=== PATIENT | male | born 1960 ===

== ENCOUNTER 2016-11-05 17:16 | Emergency (ER) | payer OTHER, BC ==
[2016-11-05 18:47] LABS: CHLORIDE,CL 107 mmol/L (98-110); SODIUM,NA 142 mmol/L (136-146)
--- NOTE | 2016-11-05 19:45 | EDM.PDOC ---
ED HPI GI/ABDOMINAL - General Chief Complaint: Abdominal Pain Stated Complaint: ABDOMINAL PAIN/RIBCAGE Time Seen by Provider: 11/05/16 17:40 Source of Information: Reports: Patient History Limitations: Reports: No limitations - History of Present Illness INITIAL COMMENTS - FREE TEXT/NARRATIVE: History of present illness: [55-year-old male presenting with acute abdominal pain. Patient indicates it is worse after he eats. Patient says in retrospect he actually feels has been struggling with the prior to 6 weeks but it has come and gone and he does notice that it is worse after eating, and he also had had some other issues such as back pain and a viral infection that he was able to rationalize was going on but now he is otherwise healthy without complaints save for this stabbing right upper quadrant pain.] Review of systems: As per history of present illness and below otherwise all systems reviewed and negative. Past medical history: As per history of present illness and as reviewed below otherwise noncontributory. Surgical history: As per history of present illness and as reviewed below otherwise noncontributory. Social history: No reported history of drug or alcohol abuse. Family history: As per history of present illness and as reviewed below otherwise noncontributory. Physical exam: HEENT: Atraumatic, normocephalic, pupils reactive, negative for conjunctival pallor or scleral icterus, mucous membranes moist, throat clear, neck supple, nontender, trachea midline. Lungs: Clear to auscultation, breath sounds equal bilaterally, chest nontender. Heart: S1S2, regular, negative for clicks, rubs, or JVD. Abdomen: Slightly firm, obese, distended abdomen that is tender in right upper quadrant with some radiation to right lower quadrant. Negative for masses or hepatosplenomegaly. Negative for costovertebral tenderness. Pelvis: Stable nontender. Genitourinary: Deferred. Rectal: Deferred. Extremities: Atraumatic, negative for cords or calf pain. Neurovascular unremarkable. Neuro: Awake, alert, oriented. Cranial nerves II through XII unremarkable. Cerebellum unremarkable. Motor and sensory unremarkable throughout. Exam nonfocal. Diagnostics: [ CBC, CMP, CT of abdomen, Toradol, Zofran] Therapeutics: [] Impression: [Cholelithiasis] Plan: [Outpatient management with pain medicine and followup a surgical consult] Definitive disposition and diagnosis as appropriate pending reevaluation and review of above. - Related Data Allergies/ADRs: Allergies Allergy/AdvReac Type Severity Reaction Status Date / Time No Known Allergies Allergy Verified 11/29/13 09:29 Home Meds: Home Meds Albuterol [Ventolin HFA] 2 puff INH BID PRN 12/30/13 [History] Budesonide/Formoterol [Symbicort 160-4.5 Mcg Inhaler] 10.2 gm IH 12/30/13 [ History] Fexofenadine HCl [Aller-Ease] 180 mg PO PRN 12/30/13 [History] Ibuprofen [Advil] 2 cap PRN 12/30/13 [History] Past Medical History Cardiovascular History: Reports: High cholesterol Respiratory History: Reports: COPD Social & Family History - Tobacco Use Smoking Status *Q: Never Smoker Second Hand Smoke Exposure: No - Caffeine Use Caffeine Use: Reports: Other - Alcohol Use Days Per Week of Alcohol Use: 0 Number of Drinks Per Day: 1 Total Drinks Per Week: 0 - Recreational Drug Use Recreational Drug Use: No Drug Use in Last 12 Months: No ED ROS GENERAL - Review of Systems Review Of Systems: See Below (History of present illness) ED EXAM, GI/ABD - Physical Exam Exam: See Below (History of present illness) Course - Orders/Labs/Meds Orders: Active Orders 24 hr Category Date Time Status Abdomen Pelvis wo Cont [CT] Stat Exams 11/05/16 18:52 Taken Labs: Laboratory Tests 11/05/16 11/05/16 11/05/16 Range/Units 18:22 18:22 18:22 WBC 9.89 (4.0-11.0) K/uL RBC 4.74 (4.50-5.90) M/uL Hgb 15.3 (13.0-17.0) g/dL Hct 44.3 (38.0-50.0) % MCV 93.5 (80.0-98.0) fL MCH 32.3 H (27.0-32.0) pg MCHC 34.5 (31.0-37.0) g/dL RDW Std Deviation 43.5 (28.0-62.0) fl RDW Coeff of Lulu 13 (11.0-15.0) % Plt Count 196 (150-400) K/uL MPV 10.00 (7.40-12.00) fL Neut % (Auto) 67.3 (48.0-80.0) % Lymph % (Auto) 21.3 (16.0-40.0) % Wilkin % (Auto) 9.1 (0.0-15.0) % Eos % (Auto) 2.1 (0.0-7.0) % Baso % (Auto) 0.2 (0.0-1.5) % Neut # (Auto) 6.7 H (1.4-5.7) K/uL Lymph # (Auto) 2.1 (0.6-2.4) K/uL Wilkin # (Auto) 0.9 H (0.0-0.8) K/uL Eos # (Auto) 0.2 (0.0-0.7) K/uL Baso # (Auto) 0.0 (0.0-0.1) K/uL Nucleated RBC % 0.0 /100WBC Nucleated RBCs # 0 K/uL Sodium 142 (136-146) mmol/L Potassium 4.2 (3.5-5.1) mmol/L Chloride 107 (98-110) mmol/L Carbon Dioxide 26 (21-31) mmol/L BUN 19 (6.0-23.0) mg/dL Creatinine 0.9 (0.6-1.5) mg/dL Est Cr Clr Drug Dosing 99.40 mL/min Estimated GFR (MDRD) > 60.0 ml/min Glucose 96 (60-110) mg/dL Calcium 9.6 (8.8-10.8) mg/dL Total Bilirubin 0.8 (0.1-1.5) mg/dL AST 20 (5-40) IU/L ALT 24 (8-54) IU/L Alkaline Phosphatase 136 (40-150) Total Protein 7.4 (6.0-8.0) g/dL Albumin 4.3 (3.5-5.0) g/dL Globulin 3.1 (2.0-3.5) g/dL Albumin/Globulin Ratio 1.4 (1.3-2.8) Amylase 38 (10-90) U/L Lipase 14 (7-80) U/L Meds: Medications Discontinued Medications Generic Name Dose Route Start Last Admin Trade Name Freq PRN Reason Stop Dose Admin Ketorolac Tromethamine 30 mg 11/05/16 20:06 Toradol IVPUSH 11/05/16 20:07 ONETIME ONE Ondansetron HCl 8 mg 11/05/16 20:06 Zofran IVPUSH 11/05/16 20:07 ONETIME ONE Departure - Departure Time of Disposition: 20:08 Disposition: Home, Self-Care 01 Condition: good Clinical Impression: Cholelithiasis Qualifiers: Cholelithiasis location: gallbladder Cholecystitis presence: with cholecystitis Cholecystitis acuity: acute Biliary obstruction: without biliary obstruction Qualified Code(s): K80.00 - Calculus of gallbladder with acute cholecystitis without obstruction Forms: ED Department Discharge Additional Instructions: The following information is given to patients seen in the emergency department who are being discharged to home. This information is to outline your options for follow-up care. We provide all patients seen in our emergency department with a follow-up referral. The need for follow-up, as well as the timing and circumstances, are variable depending upon the specifics of your emergency department visit. If you don't have a primary care physician on staff, we will provide you with a referral. We always advise you to contact your personal physician following an emergency department visit to inform them of the circumstance of the visit and for follow-up with them and/or the need for any referrals to a consulting specialist. The emergency department will also refer you to a specialist when appropriate. This referral assures that you have the opportunity for follow-up care with a specialist. All of these measure are taken in an effort to provide you with optimal care, which includes your follow-up. Under all circumstances we always encourage you to contact your private physician who remains a resource for coordinating your care. When calling for follow-up care, please make the office aware that this follow-up is from your recent emergency room visit. If for any reason you are refused follow-up, please contact the [facility] Emergency Department at and asked to speak to the emergency department charge nurse. You'll be given the name of a surgeon to followup with and some pain medicine to manage your pain until you can be seen Avoid fatty foods in your diet and telemetry are seen Turn to ED as needed as discussed [facility] Specialty Care - General Surgery Professional Building [address] [place] [address], [address] [place] [address] - My Orders Last 24 Hours: My Active Orders 11/05/16 18:52 Abdomen Pelvis wo Cont [CT] Stat - Assessment/Plan Last 24 Hours: My Active Orders 11/05/16 18:52 Abdomen Pelvis wo Cont [CT] Stat
[2016-11-05] MEDS ORDERED: Ondansetron 4 MG/2 ML SDV IVPUSH ONE (20:06)
[2016-11-05] MEDS ORDERED: Ketorolac 30 MG/ML SDV IVPUSH ONE (20:06)
[2016-11-05] MEDS ORDERED: Ketorolac 60 MG/2 ML SDV IM ONE (20:10)
[2016-11-05] MEDS ORDERED: Ondansetron 4 MG Tab.DIS PO ONE (20:11)
--- NOTE | 2016-11-06 10:23 | CT ---
EXAM DATE: 11/05/16 PATIENT'S AGE: 55 Patient: DEX COLLAZO Facility: [place], [place] Site . Site : 1960 Study: CT Abdomen/Pelvis WO CONT [id number]/11/2017 7:47:18 PM Ordering Physician: Doctor Jeffries Final Report: INDICATION: ABDOMINAL PAIN ON AND OFF 2 WEEKS. TECHNIQUE: CT abdomen and pelvis without contrast. COMPARISON: None FINDINGS: Lower chest: Mild scarring/atelectasis. Liver: Mild diffuse fatty infiltration. Spleen: Nonspecific splenomegaly measuring 14.6 cm. . Pancreas: Unremarkable. Gallbladder and bile ducts: Cholelithiasis. Kidneys: Unremarkable. No kidney or ureteral stones and no hydronephrosis. Adrenal glands: Unremarkable. GI tract: Unremarkable. Appendix is normal. Vascular structures: Scattered atherosclerotic disease. Lymph nodes: Unremarkable. Miscellaneous: Fat containing umbilical hernia. No free air or significant free fluid. Pelvic Organs: Prostatic calcifications. Bones: Multilevel degenerative changes. IMPRESSION: 1. No acute abnormality of the abdomen/pelvis. 2. Cholelithiasis. 3. Diffuse fatty infiltration of the liver. 4. Nonspecific splenomegaly. Dictated by Nate Louis MD @ 11/05/2016 8:02:05 PM Dictated by: Nate Louis MD @ 11/05/2016 20:02:22 (Electronic Signature) Report Signed by Proxy and Original Signed Document filed in the Medical Record. [facility]
== END 2016-11-05 20:40 | disposition home or self-care (01) ==
LOC: MW.ED 17:16
DX: K80.00 Calculus of gallbladder with acute cholecystitis without obstruction (principal); E78.00 Pure hypercholesterolemia, unspecified; J44.9 Chronic obstructive pulmonary disease, unspecified; Z79.899 Other long term (current) drug therapy
CPT/HCPCS: 36415; 74176; 80053; 82150; 83690; 85025; A9270; J1885; 96372; 99284; 99284-25

== ENCOUNTER 2016-11-11 07:53 | Day surgery (SDC) | payer OTHER, BC ==
[~2016-11-11 07:53] MED LIST: Bupivacaine 0.5% 10 ML SDV ONE; Lactated Ringers 1,000 ML IV SCH; ceFAZolin 1 GM Vial ONE; cefOXitin 2 GM in Premix Bag 1 BAG IV ONE
[2016-11-11] MEDS ORDERED: Ondansetron 4 MG/2 ML SDV ONE (08:29)
[2016-11-11] MEDS ORDERED: fentaNYL 250 MCG/5 ML SDV ONE (08:29)
[2016-11-11] MEDS ORDERED: Propofol 200 MG/20 ML SDV ONE ×2 (08:29→09:55)
[2016-11-11] MEDS ORDERED: Midazolam 1 MG/ML 2 ML SDV ONE (08:29)
[2016-11-11] MEDS ORDERED: Rocuronium 10 MG/ML 10 ML Syringe ONE (08:29)
[2016-11-11] MEDS ORDERED: Lidocaine 2% 5 ML SDV ONE (08:29)
[2016-11-11] MEDS ORDERED: Famotidine 20 MG/2 ML SDV IVPUSH ONE (09:00)
--- NOTE | 2016-11-11 09:07 | PCM.PREANE ---
Preanesthetic Assessment - Procedure Proposed Procedure: Laparosocpic cholecystectomy - Anesthesia/Transfusion/Family Hx Anesthesia History: Prior Anesthesia Without Reaction Other Type of Anesthesia Reaction Comment: Denies any problems Family History of Anesthesia Reaction: No Transfusion History: No Prior Transfusion(s) Intubation History: Unknown - Review of Systems General: Other (abdominal pain - using hydrocodone at home since last Friday) Pulmonary: No Symptoms, Other (sleep apnea) Cardiovascular: No Symptoms Gastrointestinal: Abdominal pain Neurological: No Symptoms, Other (c/o neck pain) Other: Reports: None - Physical Assessment O2 Sat by Pulse Oximetry: 95 Respiratory Rate: 16 Vital Signs: Last Vital Signs Temp 97.9 F 11/11/16 08:20 Pulse 64 11/11/16 08:20 Resp 16 11/11/16 08:20 BP 127/74 11/11/16 08:20 Pulse Ox 95 11/11/16 08:20 Height: 6 ft Weight: 288 lb ASA Class: 3 Mental Status: Alert & Oriented x3 Airway Class: Mallampati = 2 Dentition: Reports: Normal Dentition (abnormal frontal lower configuration) Thyro-Mental Finger Breadths: 3 Mouth Opening Finger Breadths: 3 ROM/Head Extension: Limited/Partial Lungs: Clear to auscultation, Normal respiratory effort Cardiovascular: Regular Rate, Regular Rhythm, No Murmurs - Allergies Allergies/Adverse Reactions: Allergies Allergy/AdvReac Type Severity Reaction Status Date / Time testosterone [From Androderm] Allergy Rash Verified 11/07/16 14:51 - Blood Blood Available: No Product(s) Available: None - Anesthesia Plan Free Text/Narrative:: Pain/discomfort treated with iv fentanyl (50mcg) 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 Pre-Op Medication Ordered: Antacids (pepcid given) - Acknowledgements Anesthesia Type Planned: General Anesthesia (OETT) Pt an Appropriate Candidate for the Planned Anesthesia: Yes Alternatives and Risks of Anesthesia Discussed w Pt/Guardian: Yes Pt/Guardian Understands and Agrees with Anesthesia Plan: Yes PreAnesthesia Questionnaire HEENT History: Reports: Hard of hearing Other HEENT History: wears reading glasses, does not have hearing aides Cardiovascular History: Reports: High cholesterol Respiratory History: Reports: COPD, Sleep apnea Other Respiratory History: uses CPAP Gastrointestinal History: Reports: None Genitourinary History: Reports: None Musculoskeletal History: Reports: Back pain, chronic, Neck pain, chronic Neurological History: Reports: None Psychiatric History: Reports: None Endocrine/Metabolic History: Reports: Obesity/BMI 30+ Hematologic History: Reports: None Immunologic History: Reports: None Oncologic (Cancer) History: Reports: None Dermatologic History: Reports: None - Past Surgical History Head Surgeries/Procedures: Reports: None HEENT Surgical History: Reports: LASIK, Other (see below) Other HEENT Surgeries/Procedures: removal of hemangioma from eye socket Cardiovascular Surgical History: Reports: Other (see below) Other Cardiovascular Surgeries/Procedures: had angiogram, no stents Respiratory Surgical History: Reports: None GI Surgical History: Reports: None Male Surgical History: Reports: None Endocrine Surgical History: Reports: None Neurological Surgical History: Reports: None Musculoskeletal Surgical History: Reports: Ganglion cyst Other Musculoskeletal Surgeries/Procedures:: right hand Oncologic Surgical History: Reports: None Dermatological Surgical History: Reports: None - SUBSTANCE USE Smoking Status *Q: Former Smoker Second Hand Smoke Exposure: No Days Per Week of Alcohol Use: 0 Number of Drinks Per Day: 1 Total Drinks Per Week: 0 Recreational Drug Use History: No - HOME MEDS Home Medications: Home Meds Cetirizine [ZyrTEC] 10 mg PO DAILY 11/07/16 [History] Loratadine [Claritin] 10 mg PO DAILY 11/07/16 [History] Mometasone/Formoterol [Dulera 200-5 MCG] 1 puff INH ASDIRECTED 11/07/16 [History ] Olopatadine [Patanol 0.1% Ophth Soln] 1 drop EYEBOTH BID 11/07/16 [History] atorvaSTATin [Lipitor] 10 mg PO DAILY 11/07/16 [History] - CURRENT (IN HOUSE) MEDS Current Meds: Current Medications Famotidine (Pepcid) 20 mg IVPUSH ONETIME ONE Stop: 11/11/16 09:01 Lactated Ringer's (Ringers, Lactated) 1,000 mls @ 125 mls/hr IV ASDIRECTED FRACISCO Last Admin: 11/11/16 08:22 Dose: 125 mls/hr Discontinued Medications Bupivacaine HCl (Sensorcaine-Mpf 0.5%) Confirm Administered Dose 30 ml .ROUTE .STK-MED ONE Stop: 11/11/16 07:24 Cefazolin Sodium (Ancef) Confirm Administered Dose 1 gm .ROUTE .STK-MED ONE Stop: 11/11/16 07:25 Fentanyl (Sublimaze) Confirm Administered Dose 250 mcg .ROUTE .STK-MED ONE Stop: 11/11/16 08:30 Cefoxitin Sodium 2 gm/ Premix 50 mls @ 100 mls/hr IV ONETIME ONE Stop: 11/11/16 07:29 Lidocaine (Xylocaine-Mpf 2%) Confirm Administered Dose 5 ml .ROUTE .STK-MED ONE Stop: 11/11/16 08:30 Midazolam HCl (Versed 1 Mg/Ml) Confirm Administered Dose 2 mg .ROUTE .STK-MED ONE Stop: 11/11/16 08:30 Ondansetron HCl (Zofran) Confirm Administered Dose 4 mg .ROUTE .STK-MED ONE Stop: 11/11/16 08:30 Propofol (Diprivan 20 Ml) Confirm Administered Dose 200 mg .ROUTE .STK-MED ONE Stop: 11/11/16 08:30 Rocuronium [place] (Zemuron) Confirm Administered Dose 100 mg .ROUTE .STK-MED ONE Stop: 11/11/16 08:30
[2016-11-11] MEDS ORDERED: cefOXitin 1 GM Vial ONE (09:59)
[2016-11-11] MEDS ORDERED: HYDROmorphone 2 MG/ML Syringe ONE ×2 (10:14→10:40)
[2016-11-11] MEDS ORDERED: Dexamethasone 4 MG/ML 5 ML MDV ONE (10:28)
[2016-11-11] MEDS ORDERED: Neostigmine Methylsulfate 1 MG/ML 5 ML Syringe ONE (11:12)
[2016-11-11] MEDS ORDERED: Ondansetron 4 MG/2 ML SDV IVPUSH PRN (11:39)
[2016-11-11] MEDS ORDERED: Morphine 10 MG/ML Syringe IVPUSH PRN (11:39)
[2016-11-11] MEDS: fentaNYL 100 MCG/2 ML SDV IVPUSH PRN ×3 (11:40→12:17)
--- NOTE | 2016-11-11 11:41 | PCM.OPNOTE ---
- General Post-Op/Procedure Note Date of Surgery/Procedure: 11/11/16 Operative Procedure(s): Laparoscopic cholecystectomy Findings: Cholelithiasis with cholecystitis Pre Op Diagnosis: Symptomatic cholelithiasis Post-Op Diagnosis: Cholelithiasis with cholecystitis Anesthesia Technique: General ET tube (ASA III) Primary Surgeon: Medhat Alvarez Fluid Replacement, Intraop: 2,000 Output, Urine Amount: 320 EBL in mLs: 50 Condition: Good Free Text/Narrative:: Dictation [id number]
[2016-11-11] MEDS ORDERED: Lactated Ringers 1,000 ML IV SCH (11:45)
--- NOTE | 2016-11-11 12:19 | PCM.POSTAN ---
POST ANESTHESIA ASSESSMENT - MENTAL STATUS Mental Status: alert, oriented - RESPIRATORY Respiratory Status: respiratory rate WNL, airway patent, O2 saturation stable, supplemental oxygen - CARDIOVASCULAR CV Status: pulse rate WNL, blood pressure stable - GASTROINTESTINAL GI Status: no symptoms - PAIN Pain Score: 4 (pt sleeping at this time after pain medication) - POST OP HYDRATION Hydration Status: adequate & stable - OBSERVATIONS Free Text/Narrative:: Pt currently sleeping after additional pain medication. VSS. No apparent anesthesia complications.
[2016-11-11] MEDS: Acetaminophen/HYDROcodone 325-5 MG Tab PO PRN ×2 (13:33→15:27)
--- NOTE | 2016-11-11 14:56 | PCM48HPAN ---
Post Anesthesia Note - EVALUATION WITHIN 48HRS OF ANESTHETIC Vital Signs in Normal Range: Yes Patient Participated in Evaluation: Yes Respiratory Function Stable: Yes Airway Patent: Yes Cardiovascular Function Stable: Yes Hydration Status Stable: Yes Pain Control Satisfactory: Yes Nausea and Vomiting Control Satisfactory: Yes Mental Status Recovered: Yes
[2016-11-11 15:24] VITALS: BP 143/68
--- NOTE | 2016-11-11 15:40 | OR ---
SURGEON: Medhat Alavrez M.D. DATE OF PROCEDURE: 11/11/2016 OPERATION PERFORMED: Laparoscopic cholecystectomy. ANESTHESIA: General endotracheal. ASA CLASSIFICATION: III. PREOPERATIVE DIAGNOSIS: Symptomatic cholelithiasis. POSTOPERATIVE DIAGNOSIS: Cholelithiasis with cholecystitis. ESTIMATED BLOOD LOSS: 50 mL. INTRAOPERATIVE FLUID REPLACEMENT: 2000 mL of crystalloid. INTRAOPERATIVE URINARY OUTPUT: 320 mL. DESCRIPTION OF PROCEDURE: The patient was taken to the operating room and placed on the operating table in the supine position. Time-out was called for appropriate identification of patient and procedure. Thigh-high TEDs and sequential compression boots were placed. Following satisfactory attainment of general endotracheal anesthesia, a Alarcon catheter was placed in the patient's urinary bladder. The abdomen was prepped with DuraPrep solution and sterile drapes were applied. The skin just above the umbilicus was infiltrated with 0.5% Marcaine solution. The skin incision was made and deepened through the subcutaneous tissue obtaining hemostasis with the use of electrocautery. The Veress needle was introduced into the peritoneal cavity. Saline drop test was positive. Carbon dioxide pneumoperitoneum was established with the release set at 13 cm of water. Once we had a satisfactory pneumoperitoneum, the patient was positioned with his feet down and rolled to the left. Under camera vision and with local infiltration of each incision, 12 mm subxiphoid, 5 mm midclavicular, and 5 mm anterior axillary ports were placed. The gallbladder was grasped. The cholecystohepatic triangle was dissected free and with difficulty, we were able to identify the cystic duct and obtained a good critical view. Cystic duct was hemoclipped and divided with the laparoscopic Metzenbaum scissor. The cystic artery was identified and handled in a similar fashion with ligation and division with the laparoscopic Metzenbaum scissor. The gallbladder was dissected away from its bed. However, bile was spilled and this was all aspirated. One stone was spilled and recovered. The gallbladder was able to be amputated and placed in an Endopouch. The Endopouch was left in situ and the bed of the gallbladder was inspected for hemostasis and bile leak. No bile leak was noted. The right upper quadrant was irrigated with sterile saline solution. All fluid was aspirated. There was some oozing coming from the bed of the gallbladder. Endo Avitene x2 and Surgicel were placed into the bed of the gallbladder. The right hemidiaphragm was then irrigated with 250 mL of saline with 20 mL of 0.5% Marcaine solution. That fluid was left in place. Under camera vision, the 12 mm subxiphoid port and Endopouch containing gallbladder were removed. Again, under camera vision, the 5 mm midclavicular and anterior axillary ports were removed and finally, the supraumbilical camera and port were removed. The wounds were inspected for hemostasis. No bleeding was noted. The subxiphoid and supraumbilical incisions were closed in 2 layers, approximating the subcutaneous tissue with 3-0 Polysorb and the skin with subcuticular 4-0 Monocryl. The midclavicular and anterior axillary incisions were closed with subcuticular 4-0 Monocryl. All incisions were Steri-Stripped and dressed with sterile Tegaderm pads. Sponge, needle, and instrument counts were all correct. The patient tolerated the procedure well. The Alarcon catheter was removed prior to emergence from anesthesia. Following emergence from anesthesia and extubation, the patient was taken to recovery room in stable condition. BONNIE KIMBALL /[id number]
== END 2016-11-11 16:45 | disposition home or self-care (01) ==
LOC: MW.SDS 07:53
PROVIDERS: ATTEND Surgery
PROC: 0FT44ZZ Resection of Gallbladder, Percutaneous Endoscopic Approach (ICD-10-PCS; principal; 2016-11-11)
DX: K80.10 Calculus of gallbladder with chronic cholecystitis without obstruction (principal); J44.9 Chronic obstructive pulmonary disease, unspecified; E78.00 Pure hypercholesterolemia, unspecified; E66.9 Obesity, unspecified; G47.30 Sleep apnea, unspecified; Z86.010 Personal history of colon polyps; Z87.891 Personal history of nicotine dependence; Z80.0 Family history of malignant neoplasm of digestive organs; Z91.048 Other nonmedicinal substance allergy status; Z79.899 Other long term (current) drug therapy; Z98.890 Other specified postprocedural states; Z68.39 Body mass index [BMI] 39.0-39.9, adult; Z99.89 Dependence on other enabling machines and devices
CPT/HCPCS: 47562; A9270; J0694; J1100; J1170; J2250; J2405; J3010; J7120; 00790; 88304; J0690; J2704

== ENCOUNTER 2016-11-17 19:39 | Emergency (ER) | payer OTHER, BC ==
[2016-11-17] MEDS ORDERED: Albuterol/Ipratropium 3.0-0.5 MG/3 ML Neb Soln NEB ONE (20:29)
[2016-11-17 20:33] LABS: CHLORIDE,CL 109 mmol/L (98-110); SODIUM,NA 143 mmol/L (136-146)
[2016-11-17] MEDS ORDERED: Iopamidol 755 MG/ML 500 ML Multipack Bottle IVPUSH STA (22:14)
--- NOTE | 2016-11-17 22:54 | EDM.PDOC ---
ED HISTORY OF PRESENT ILLNESS - General Chief Complaint: Respiratory Problem Stated Complaint: SOB Time Seen by Provider: 11/17/16 22:51 Source of Information: Reports: Patient - History of Present Illness INITIAL COMMENTS - FREE TEXT/NARRATIVE: HISTORY AND PHYSICAL: History of present illness: [] Patient with COPD presents with complaint of shortness of breath, and my exam breathing is nonlabored no retractions no pursed lips O2 sats is 97% He did recently have surgery and is post laparoscopic cholecystectomy with no complications and no pain associated No fever nausea vomiting chills sweats no chest pain headache dizziness or palpitation no bowel or urine symptoms Review of systems: As per history of present illness and below otherwise all systems reviewed and negative. Past medical history: As per history of present illness and as reviewed below otherwise noncontributory. Surgical history: As per history of present illness and as reviewed below otherwise noncontributory. Social history: No reported history of drug or alcohol abuse. Family history: As per history of present illness and as reviewed below otherwise noncontributory. Physical exam: HEENT: Atraumatic, normocephalic, pupils reactive, negative for conjunctival pallor or scleral icterus, mucous membranes moist, throat clear, neck supple, nontender, trachea midline. Lungs: Clear to auscultation, breath sounds equal bilaterally, chest nontender. Heart: S1S2, regular, negative for clicks, rubs, or JVD. Abdomen: Soft, nondistended, nontender. Negative for masses or hepatosplenomegaly. Negative for costovertebral tenderness. Pelvis: Stable nontender. Genitourinary: Deferred. Rectal: Deferred. Extremities: Atraumatic, negative for cords or calf pain. Neurovascular unremarkable. Neuro: Awake, alert, oriented. Cranial nerves II through XII unremarkable. Cerebellum unremarkable. Motor and sensory unremarkable throughout. Exam nonfocal. Diagnostics: [] Lab as below Chest one view Elevated d-dimer and CTA chest performed Ambulatory O2 sat normal at 97% EKG Therapeutics: [] Dual neb Albuterol HFA Impression: [] Stated shortness of breath Worried well Chronic history of baseline Definitive disposition and diagnosis as appropriate pending reevaluation and review of above. - Related Data Allergies/ADRs: Allergies Allergy/AdvReac Type Severity Reaction Status Date / Time [facility] Allergy Rash Verified 11/17/16 19:47 Home Meds: Home Meds Cetirizine [ZyrTEC] 10 mg PO DAILY 11/07/16 [History] Mometasone/Formoterol [Dulera 200-5 MCG] 2 puff INH BID 11/07/16 [History] atorvaSTATin [Lipitor] 10 mg PO DAILY 11/07/16 [History] Acetaminophen/HYDROcodone [[place] 325-5 MG] 1 tab PO ASDIRECTED PRN 11/17/16 [ History] Past Medical History HEENT History: Reports: Hard of hearing Other HEENT History: wears reading glasses, does not have hearing aides Cardiovascular History: Reports: High cholesterol Respiratory History: Reports: COPD, Sleep apnea Other Respiratory History: uses CPAP Gastrointestinal History: Reports: None Genitourinary History: Reports: None Musculoskeletal History: Reports: Back pain, chronic, Neck pain, chronic Neurological History: Reports: None Psychiatric History: Reports: None Endocrine/Metabolic History: Reports: Obesity/BMI 30+ Hematologic History: Reports: None Immunologic History: Reports: None Oncologic (Cancer) History: Reports: None Dermatologic History: Reports: None - Infectious Disease History Infectious Disease History: Reports: Chicken pox, Measles, Mumps - Past Surgical History Head Surgeries/Procedures: Reports: None HEENT Surgical History: Reports: LASIK, Other (see below) Other HEENT Surgeries/Procedures: removal of hemangioma from eye socket Cardiovascular Surgical History: Reports: Other (see below) Other Cardiovascular Surgeries/Procedures: had angiogram, no stents Respiratory Surgical History: Reports: None GI Surgical History: Reports: None, Cholecystectomy Male Surgical History: Reports: None Endocrine Surgical History: Reports: None Neurological Surgical History: Reports: None Musculoskeletal Surgical History: Reports: Ganglion cyst Other Musculoskeletal Surgeries/Procedures:: right hand Oncologic Surgical History: Reports: None Dermatological Surgical History: Reports: None Social & Family History - Tobacco Use Smoking Status *Q: Never Smoker Second Hand Smoke Exposure: No - Caffeine Use Caffeine Use: Reports: Other - Alcohol Use Days Per Week of Alcohol Use: 0 Number of Drinks Per Day: 1 Total Drinks Per Week: 0 - Recreational Drug Use Recreational Drug Use: No Drug Use in Last 12 Months: No ED ROS GENERAL - Review of Systems Review Of Systems: ROS reveals no pertinent complaints other than HPI. ED EXAM, GENERAL - Physical Exam Exam: See Below Course - Vital Signs Last Recorded V/S: Last Vital Signs Temp 36.5 C 11/17/16 19:47 Pulse 95 11/17/16 22:52 Resp 17 11/17/16 22:52 BP 139/75 11/17/16 22:52 Pulse Ox 95 11/17/16 22:52 - Orders/Labs/Meds Orders: Active Orders 24 hr Category Date Time Status EKG Documentation Completion [RC] STAT Care 11/17/16 19:51 Active RT Aerosol Therapy [RC] ASDIRECTED Care 11/17/16 20:29 Active CTA Chest W WO Contrast [Ang Chest] [CT] Stat Exams 11/17/16 20:44 Taken Chest 1V Frontal [CR] Stat Exams 11/17/16 19:51 Taken Labs: Laboratory Tests 11/17/16 11/17/16 11/17/16 Range/Units 20:02 20:02 20:02 WBC 6.42 (4.0-11.0) K/uL RBC 4.67 (4.50-5.90) M/uL Hgb 15.0 (13.0-17.0) g/dL Hct 42.9 (38.0-50.0) % MCV 91.9 (80.0-98.0) fL MCH 32.1 H (27.0-32.0) pg MCHC 35.0 (31.0-37.0) g/dL RDW Std Deviation 41.8 (28.0-62.0) fl RDW Coeff of Lulu 12 (11.0-15.0) % Plt Count 211 (150-400) K/uL MPV 9.90 (7.40-12.00) fL Neut % (Auto) 64.1 (48.0-80.0) % Lymph % (Auto) 23.4 (16.0-40.0) % Trigg % (Auto) 9.7 (0.0-15.0) % Eos % (Auto) 2.5 (0.0-7.0) % Baso % (Auto) 0.3 (0.0-1.5) % Neut # (Auto) 4.1 (1.4-5.7) K/uL Lymph # (Auto) 1.5 (0.6-2.4) K/uL Trigg # (Auto) 0.6 (0.0-0.8) K/uL Eos # (Auto) 0.2 (0.0-0.7) K/uL Baso # (Auto) 0.0 (0.0-0.1) K/uL Nucleated RBC % 0.0 /100WBC Nucleated RBCs # 0 K/uL INR 0.94 (0.86-1.11) D-Dimer, Quantitative 1.20 H (0.0-0.52) mg/LFEU Sodium 143 (136-146) mmol/L Potassium 3.9 (3.5-5.1) mmol/L Chloride 109 (98-110) mmol/L Carbon Dioxide 24 (21-31) mmol/L BUN 16 (6.0-23.0) mg/dL Creatinine 0.9 (0.6-1.5) mg/dL Est Cr Clr Drug Dosing 99.40 mL/min Estimated GFR (MDRD) > 60.0 ml/min Glucose 136 H (60-110) mg/dL Calcium 9.5 (8.8-10.8) mg/dL Total Bilirubin 0.5 (0.1-1.5) mg/dL AST 14 (5-40) IU/L ALT 20 (8-54) IU/L Alkaline Phosphatase 133 (40-150) Troponin I (0.0-0.29) NG/ML B-Natriuretic Peptide (<100) PG/ML Total Protein 7.1 (6.0-8.0) g/dL Albumin 4.2 (3.5-5.0) g/dL Globulin 2.9 (2.0-3.5) g/dL Albumin/Globulin Ratio 1.4 (1.3-2.8) Urine Color Urine Appearance Urine pH (5.0-8.0) Ur Specific [place] (1.001-1.035) Urine Protein (NEGATIVE) mg/dL Urine Glucose (UA) (NEGATIVE) mg/dL Urine Ketones (NEGATIVE) mg/dL Urine Occult Blood (NEGATIVE) Urine Nitrite (NEGATIVE) Urine Bilirubin (NEGATIVE) Urine Urobilinogen (<2.0) EU/dL Ur Leukocyte Esterase (NEGATIVE) Urine RBC (0-2/HPF) Urine WBC (0-5/HPF) Ur Epithelial Cells (NONE-FEW) Urine Bacteria (NEGATIVE) 04/23/17 04/23/17 04/23/17 Range/Units 20:02 20:02 20:30 WBC (4.0-11.0) K/uL RBC (4.50-5.90) M/uL Hgb (13.0-17.0) g/dL Hct (38.0-50.0) % MCV (80.0-98.0) fL MCH (27.0-32.0) pg MCHC (31.0-37.0) g/dL RDW Std Deviation (28.0-62.0) fl RDW Coeff of Lulu (11.0-15.0) % Plt Count (150-400) K/uL MPV (7.40-12.00) fL Neut % (Auto) (48.0-80.0) % Lymph % (Auto) (16.0-40.0) % Trigg % (Auto) (0.0-15.0) % Eos % (Auto) (0.0-7.0) % Baso % (Auto) (0.0-1.5) % Neut # (Auto) (1.4-5.7) K/uL Lymph # (Auto) (0.6-2.4) K/uL Trigg # (Auto) (0.0-0.8) K/uL Eos # (Auto) (0.0-0.7) K/uL Baso # (Auto) (0.0-0.1) K/uL Nucleated RBC % /100WBC Nucleated RBCs # K/uL INR (0.86-1.11) D-Dimer, Quantitative (0.0-0.52) mg/LFEU Sodium (136-146) mmol/L Potassium (3.5-5.1) mmol/L Chloride (98-110) mmol/L Carbon Dioxide (21-31) mmol/L BUN (6.0-23.0) mg/dL Creatinine (0.6-1.5) mg/dL Est Cr Clr Drug Dosing mL/min Estimated GFR (MDRD) ml/min Glucose (60-110) mg/dL Calcium (8.8-10.8) mg/dL Total Bilirubin (0.1-1.5) mg/dL AST (5-40) IU/L ALT (8-54) IU/L Alkaline Phosphatase (40-150) Troponin I < 0.10 (0.0-0.29) NG/ML B-Natriuretic Peptide 20 (<100) PG/ML Total Protein (6.0-8.0) g/dL Albumin (3.5-5.0) g/dL Globulin (2.0-3.5) g/dL Albumin/Globulin Ratio (1.3-2.8) Urine Color YELLOW Urine Appearance CLEAR Urine pH 7.5 (5.0-8.0) Ur Specific [place] 1.015 (1.001-1.035) Urine Protein NEGATIVE (NEGATIVE) mg/dL Urine Glucose (UA) NEGATIVE (NEGATIVE) mg/dL Urine Ketones NEGATIVE (NEGATIVE) mg/dL Urine Occult Blood NEGATIVE (NEGATIVE) Urine Nitrite NEGATIVE (NEGATIVE) Urine Bilirubin NEGATIVE (NEGATIVE) Urine Urobilinogen 0.2 (<2.0) EU/dL Ur Leukocyte Esterase NEGATIVE (NEGATIVE) Urine RBC NONE SEEN (0-2/HPF) Urine WBC NONE SEEN (0-5/HPF) Ur Epithelial Cells NOT SEEN (NONE-FEW) Urine Bacteria RARE (NEGATIVE) Meds: Medications Discontinued Medications Generic Name Dose Route Start Last Admin Trade Name Freq PRN Reason Stop Dose Admin Albuterol/Ipratropium 3 ml 11/17/16 20:29 11/17/16 20:35 Duoneb 3.0-0.5 Mg/3 Ml NEB 11/17/16 20:30 3 ml ONETIME ONE Administration Iopamidol 50 ml 11/17/16 22:14 11/17/16 22:14 Isovue Multipack-370 (76%) IVPUSH 11/17/16 22:15 50 ml ONETIME STA Administration Departure - Departure Time of Disposition: 23:08 Disposition: Home, Self-Care 01 Condition: good Clinical Impression: Worried well Forms: ED Department Discharge Additional Instructions: Continue current medications as directed Recommend our albuterol inhaler 2 puffs 3 times daily 7 days Followup with primary care Consider pulmonary function testing The following information is given to patients seen in the emergency department who are being discharged to home. This information is to outline your options for follow-up care. We provide all patients seen in our emergency department with a follow-up referral. The need for follow-up, as well as the timing and circumstances, are variable depending upon the specifics of your emergency department visit. If you don't have a primary care physician on staff, we will provide you with a referral. We always advise you to contact your personal physician following an emergency department visit to inform them of the circumstance of the visit and for follow-up with them and/or the need for any referrals to a consulting specialist. The emergency department will also refer you to a specialist when appropriate. This referral assures that you have the opportunity for follow-up care with a specialist. All of these measure are taken in an effort to provide you with optimal care, which includes your follow-up. Under all circumstances we always encourage you to contact your private physician who remains a resource for coordinating your care. When calling for follow-up care, please make the office aware that this follow-up is from your recent emergency room visit. If for any reason you are refused follow-up, please contact the [facility] emergency department at and asked to speak to the emergency department charge nurse. - My Orders Last 24 Hours: My Active Orders 11/17/16 19:51 EKG Documentation Completion [RC] STAT Chest 1V Frontal [CR] Stat 11/17/16 20:29 RT Aerosol Therapy [RC] ASDIRECTED 11/17/16 20:44 CTA Chest W WO Contrast [Ang Chest] [CT] Stat - Assessment/Plan Last 24 Hours: My Active Orders 11/17/16 19:51 EKG Documentation Completion [RC] STAT Chest 1V Frontal [CR] Stat 11/17/16 20:29 RT Aerosol Therapy [RC] ASDIRECTED 11/17/16 20:44 CTA Chest W WO Contrast [Ang Chest] [CT] Stat
[2016-11-17 23:29] VITALS: BP 129/73
--- NOTE | 2016-11-18 11:15 | CR ---
EXAM DATE: 11/17/16 PATIENT'S AGE: 55 Patient: DEX COLLAZO Facility: [place], [place] Site . Site : 1960 Study: XRay Chest [id number]/23/2017 8:26:35 PM Ordering Physician: Daniel Gonzalez Final Report: INDICATION: Pain. Short of breath. TECHNIQUE: Chest 1 view. COMPARISON: None FINDINGS: No pneumothorax or pleural effusion. Lungs are clear. Cardiac and mediastinal contours are within normal limits. Upper abdomen and osseous structures as imaged show no acute abnormality. IMPRESSION: No acute cardiopulmonary disease. Dictated by: Isaak Quiroz MD @ 11/17/2016 20:47:15 (Electronic Signature) Report Signed by Proxy and Original Signed Document filed in the Medical Record. [facility]
--- NOTE | 2016-11-18 11:16 | CT ---
EXAM DATE: 11/17/16 PATIENT'S AGE: 55 Patient: DEX COLLAZO Facility: [place], [place] Site . Site : 1960 Study: CT Chest Angio [id number]/23/2017 10:13:33 PM Ordering Physician: Daniel Gonzalez Final Report: INDICATION: Shortness of breath TECHNIQUE: CT chest pulmonary angiogram acquired with i.v. 50 mL of Isovue 370. Coronal and sagittal reformats were obtained. COMPARISON: None FINDINGS: Cardiovascular structures: The pulmonary arteries are unremarkable in appearance with no evidence of acute pulmonary embolism. The heart has an unremarkable appearance and size. No sign of aneurysm or dissection in the thoracic aorta. Mediastinum and christen: No mass or adenopathy seen. Lungs: A small focus of atelectasis is seen in the left lateral lung base. Pleura and pericardium: No pleural effusions are seen. No significant pericardial effusion is present. Chest wall and axilla: No mass or adenopathy seen. Bones: No significant findings. Upper abdomen: Unremarkable. IMPRESSION: 1. No CT evidence of pulmonary embolism seen. Dictated by Kuldeep Patel MD @ 11/17/2016 10:40:34 PM Dictated by: Kuldeep Patel MD @ 11/17/2016 22:40:39 (Electronic Signature) Report Signed by Proxy and Original Signed Document filed in the Medical Record. [facility]
== END 2016-11-17 23:26 | disposition home or self-care (01) ==
LOC: MW.ED 19:39
DX: Z71.1 Person with feared health complaint in whom no diagnosis is made (principal); E78.00 Pure hypercholesterolemia, unspecified; J44.9 Chronic obstructive pulmonary disease, unspecified; G47.30 Sleep apnea, unspecified; E66.9 Obesity, unspecified; Z79.899 Other long term (current) drug therapy; G89.29 Other chronic pain; Z90.49 Acquired absence of other specified parts of digestive tract
CPT/HCPCS: 36415; 71010; 71275; 80053; 81001; 83880; 84484; 85025; 85379; 85610; 94664; Q9967; 93005; 99284; 99285-25

== ENCOUNTER → 2016-12-04 | Outpatient (CLI) | payer OTHER, BC ==
[~2016-12-04] MED LIST changes: +Albuterol 0.083% 2.5 MG/3 ML Neb Soln NEB ONE; +Albuterol 0.083% 2.5 MG/3 ML Neb Soln ONE; -Bupivacaine 0.5% 10 ML SDV ONE; -Lactated Ringers 1,000 ML IV SCH; -ceFAZolin 1 GM Vial ONE; -cefOXitin 2 GM in Premix Bag 1 BAG IV ONE
== END ==
LOC: MW.RT 13:42
PROVIDERS: ATTEND Student in an Organized Health Care Education/Training Program
DX: R06.02 Shortness of breath (principal)
CPT/HCPCS: 94060; 94727; 94729

== ENCOUNTER 2016-12-07 14:39 | Emergency (ER) | payer OTHER, BC ==
[2016-12-07] MEDS ORDERED: Sodium Chloride 0.9% 1,000 ML IV ONE (14:54)
[2016-12-07] MEDS ORDERED: Ondansetron 4 MG/2 ML SDV IVPUSH ONE (14:54)
[2016-12-07] MEDS ORDERED: Sodium Chloride 0.9% 10 ML Syringe FLUSH PRN (14:54)
[2016-12-07] MEDS ORDERED: Sodium Chloride 0.9% 2.5 ML Syringe FLUSH PRN (14:54)
--- NOTE | 2016-12-07 15:02 | EDM.PDOC ---
ED HPI GENERAL MEDICAL PROBLEM - General Chief Complaint: Back Pain or Injury Stated Complaint: PAIN Time Seen by Provider: 12/07/16 14:40 Source of Information: Reports: Patient History Limitations: Reports: No Limitations - History of Present Illness INITIAL COMMENTS - FREE TEXT/NARRATIVE: History of present illness: [] Patient had gallbladder surgery one month ago and has had right upper quadrant pain ever since. He took his [place] last night for worsening pain and one this morning without relief. His pain now is in his right flank radiating around to his epigastrium. He denies any fevers, chills, nausea, vomiting, diarrhea or constipation. He states his urine is dark but that is normal because he takes vitamins. Review of systems: As per history of present illness and below otherwise all systems reviewed and negative. Past medical history: As per history of present illness and as reviewed below otherwise noncontributory. Surgical history: As per history of present illness and as reviewed below otherwise noncontributory. Social history: No reported history of drug or alcohol abuse. Family history: As per history of present illness and as reviewed below otherwise noncontributory. Physical exam: General: Well developed, well nourished in NAD HEENT: Atraumatic, normocephalic, pupils reactive, negative for conjunctival pallor or scleral icterus, mucous membranes moist, throat clear, neck supple, nontender, trachea midline. Lungs: Clear to auscultation, breath sounds equal bilaterally, chest nontender. Heart: S1S2, regular, negative for clicks, rubs, or JVD. Abdomen: Soft, nondistended, right upper quadrant tenderness. Negative for masses or hepatosplenomegaly. Positive for right costovertebral tenderness. Pelvis: Stable nontender. Genitourinary: Deferred. Rectal: Deferred. Extremities: Atraumatic, negative for cords or calf pain. Neurovascular unremarkable. Neuro: Awake, alert, oriented. Cranial nerves II through XII unremarkable. Cerebellum unremarkable. Motor and sensory unremarkable throughout. Exam nonfocal. Diagnostics: [] Labs are normal, chest x-ray shows no atelectasis or pneumonia. There is no sign of hematuria suggesting kidney stones Therapeutics: [] Patient was hydrated given pain medicine and Pepcid for possible gastritis Impression: [] Post operative right upper quadrant pain. I discussed this case with Dr. Emmanuel she suggested patient continue pain meds, take meds for possible gastritis and followup with Dr. Alvarez in clinic next week. Plan: [] Followup with Dr. Alvarez next week, Pepcid twice a day return if symptoms worsen or change the Definitive disposition and diagnosis as appropriate pending reevaluation and review of above. back Pain Score (Numeric/FACES): 9 - Related Data Allergies Allergy/AdvReac Type Severity Reaction Status Date / Time testosterone [From Androderm] Allergy Rash Verified 11/17/16 19:47 Home Meds: Home Meds Cetirizine [ZyrTEC] 10 mg PO DAILY 11/07/16 [History] Mometasone/Formoterol [Dulera 200-5 MCG] 2 puff INH BID 11/07/16 [History] atorvaSTATin [Lipitor] 10 mg PO DAILY 11/07/16 [History] Acetaminophen/HYDROcodone [[place] 325-5 MG] 1 tab PO ASDIRECTED PRN 11/17/16 [ History] Past Medical History HEENT History: Reports: Hard of Hearing Other HEENT History: wears reading glasses, does not have hearing aides Cardiovascular History: Reports: High Cholesterol Respiratory History: Reports: COPD, Sleep Apnea Other Respiratory History: uses CPAP Gastrointestinal History: Reports: None Genitourinary History: Reports: None Musculoskeletal History: Reports: Back Pain, Chronic, Neck Pain, Chronic Neurological History: Reports: None Psychiatric History: Reports: None Endocrine/Metabolic History: Reports: Obesity/BMI 30+ Hematologic History: Reports: None Immunologic History: Reports: None Oncologic (Cancer) History: Reports: None Dermatologic History: Reports: None - Infectious Disease History Infectious Disease History: Reports: Chicken Pox, Measles, Mumps - Past Surgical History Head Surgeries/Procedures: Reports: None HEENT Surgical History: Reports: LASIK GI Surgical History: Reports: Cholecystectomy Male Surgical History: Reports: None Endocrine Surgical History: Reports: None Neurological Surgical History: Reports: None Musculoskeletal Surgical History: Reports: Ganglion Cyst Oncologic Surgical History: Reports: None Dermatological Surgical History: Reports: None Social & Family History - Family History Family Medical History: Noncontributory - Tobacco Use Smoking Status *Q: Never Smoker Second Hand Smoke Exposure: No - Caffeine Use Caffeine Use: Reports: None - Alcohol Use Days Per Week of Alcohol Use: 0 Number of Drinks Per Day: 1 Total Drinks Per Week: 0 - Recreational Drug Use Recreational Drug Use: No Drug Use in Last 12 Months: No ED ROS GENERAL - Review of Systems Review Of Systems: See Below (See history of present illness) ED EXAM, GI/ABD - Physical Exam Exam: See Below (See history of present illness) Course - Vital Signs Last Recorded V/S: Last Vital Signs Temp 37.1 C 12/07/16 14:49 Pulse 70 12/07/16 17:04 Resp 16 12/07/16 17:04 BP 133/73 12/07/16 17:04 Pulse Ox 99 12/07/16 17:04 - Orders/Labs/Meds Orders: Active Orders 24 hr Category Date Time Status Chest 2V [CR] Stat Exams 12/07/16 16:09 Taken HYDROmorphone [Dilaudid] Med 12/07/16 14:54 Active 0.5 mg IVPUSH Q1H PRN Sodium Chloride 0.9% [Saline Flush] Med 12/07/16 14:54 Active 10 ml FLUSH ASDIRECTED PRN Sodium Chloride 0.9% [Saline Flush] Med 12/07/16 14:54 Active 2.5 ml FLUSH ASDIRECTED PRN Peripheral IV Insertion Adult [OM.PC] Stat Oth 12/07/16 14:52 Ordered Medication Orders Hydromorphone HCl (Dilaudid) 0.5 mg IVPUSH Q1H PRN PRN Reason: Pain Last Admin: 12/07/16 15:38 Dose: 0.5 mg Admin: 12/07/16 15:05 Dose: 0.5 mg Sodium Chloride (Saline Flush) 10 ml FLUSH ASDIRECTED PRN PRN Reason: Keep Vein Open Last Admin: 12/07/16 15:05 Dose: 10 ml Sodium Chloride (Saline Flush) 2.5 ml FLUSH ASDIRECTED PRN PRN Reason: Keep Vein Open Last Admin: 12/07/16 15:04 Dose: 2.5 ml Labs: Laboratory Tests 12/07/16 12/07/16 12/07/16 Range/Units 15:03 15:03 15:35 WBC 6.95 (4.0-11.0) K/uL RBC 4.64 (4.50-5.90) M/uL Hgb 14.7 (13.0-17.0) g/dL Hct 42.4 (38.0-50.0) % MCV 91.4 (80.0-98.0) fL MCH 31.7 (27.0-32.0) pg MCHC 34.7 (31.0-37.0) g/dL RDW Std Deviation 41.7 (28.0-62.0) fl RDW Coeff of Lulu 13 (11.0-15.0) % Plt Count 180 (150-400) K/uL MPV 9.70 (7.40-12.00) fL Neut % (Auto) 54.8 (48.0-80.0) % Lymph % (Auto) 24.6 (16.0-40.0) % [place] % (Auto) 7.6 (0.0-15.0) % Eos % (Auto) 12.1 H (0.0-7.0) % Baso % (Auto) 0.9 (0.0-1.5) % Neut # (Auto) 3.8 (1.4-5.7) K/uL Lymph # (Auto) 1.7 (0.6-2.4) K/uL [place] # (Auto) 0.5 (0.0-0.8) K/uL Eos # (Auto) 0.8 H (0.0-0.7) K/uL Baso # (Auto) 0.1 (0.0-0.1) K/uL Nucleated RBC % 0.0 /100WBC Nucleated RBCs # 0 K/uL Sodium 141 (136-146) mmol/L Potassium 3.9 (3.5-5.1) mmol/L Chloride 109 (98-110) mmol/L Carbon Dioxide 21 (21-31) mmol/L BUN 19 (6.0-23.0) mg/dL Creatinine 0.9 (0.6-1.5) mg/dL Est Cr Clr Drug Dosing 99.40 mL/min Estimated GFR (MDRD) > 60.0 ml/min Glucose 113 H (60-110) mg/dL Calcium 9.7 (8.8-10.8) mg/dL Total Bilirubin 0.6 (0.1-1.5) mg/dL AST 18 (5-40) IU/L ALT 27 (8-54) IU/L Alkaline Phosphatase 141 (40-150) Total Protein 7.0 (6.0-8.0) g/dL Albumin 4.3 (3.5-5.0) g/dL Globulin 2.7 (2.0-3.5) g/dL Albumin/Globulin Ratio 1.6 (1.3-2.8) Lipase 16 (7-80) U/L Urine Color YELLOW Urine Appearance CLEAR Urine pH 5.5 (5.0-8.0) Ur Specific [place] >= 1.030 (1.001-1.035) Urine Protein NEGATIVE (NEGATIVE) mg/dL Urine Glucose (UA) NEGATIVE (NEGATIVE) mg/dL Urine Ketones NEGATIVE (NEGATIVE) mg/dL Urine Occult Blood NEGATIVE (NEGATIVE) Urine Nitrite NEGATIVE (NEGATIVE) Urine Bilirubin NEGATIVE (NEGATIVE) Urine Urobilinogen 0.2 (<2.0) EU/dL Ur Leukocyte Esterase NEGATIVE (NEGATIVE) Urine RBC 0-1 (0-2/HPF) Urine WBC 0-1 (0-5/HPF) Ur Epithelial Cells RARE (NONE-FEW) Urine Bacteria FEW (NEGATIVE) Urine Mucus HEAVY (NONE-MOD) Meds: Medications Generic Name Dose Route Start Last Admin Trade Name Freq PRN Reason Stop Dose Admin Hydromorphone HCl 0.5 mg 12/07/16 14:54 12/07/16 15:38 Dilaudid IVPUSH 0.5 mg Q1H PRN Administration Pain Sodium Chloride 10 ml 12/07/16 14:54 12/07/16 15:05 Saline Flush FLUSH 10 ml ASDIRECTED PRN Administration Keep Vein Open Sodium Chloride 2.5 ml 12/07/16 14:54 12/07/16 15:04 Saline Flush FLUSH 2.5 ml ASDIRECTED PRN Administration Keep Vein Open Discontinued Medications Generic Name Dose Route Start Last Admin Trade Name Freq PRN Reason Stop Dose Admin Famotidine 20 mg 12/07/16 16:57 12/07/16 17:02 Pepcid IVPUSH 12/07/16 16:58 20 mg ONETIME ONE Administration Sodium Chloride 1,000 mls @ 999 mls/hr 12/07/16 14:54 12/07/16 15:04 Normal Saline IV 12/07/16 15:54 999 mls/hr .Bolus ONE Administration Ondansetron HCl 4 mg 12/07/16 14:54 12/07/16 15:06 Zofran IVPUSH 12/07/16 14:55 4 mg ONETIME ONE Administration Departure - Departure Time of Disposition: 17:15 Disposition: Home, Self-Care 01 Condition: good Clinical Impression: Postoperative right upper quadrant abdominal pain - Discharge Information Forms: ED Department Discharge Additional Instructions: The following information is given to patients seen in the emergency department who are being discharged to home. This information is to outline your options for follow-up care. We provide all patients seen in our emergency department with a follow-up referral. The need for follow-up, as well as the timing and circumstances, are variable depending upon the specifics of your emergency department visit. If you don't have a primary care physician on staff, we will provide you with a referral. We always advise you to contact your personal physician following an emergency department visit to inform them of the circumstance of the visit and for follow-up with them and/or the need for any referrals to a consulting specialist. The emergency department will also refer you to a specialist when appropriate. This referral assures that you have the opportunity for follow-up care with a specialist. All of these measure are taken in an effort to provide you with optimal care, which includes your follow-up. Under all circumstances we always encourage you to contact your private physician who remains a resource for coordinating your care. When calling for follow-up care, please make the office aware that this follow-up is from your recent emergency room visit. If for any reason you are refused follow-up, please contact the [facility] Emergency Department at and asked to speak to the emergency department charge nurse. Take Pepcid twice a day, continue pain meds as needed for pain, return here if any symptoms change or worsen, followup with Dr. Alvarez next week [facility] Specialty [facility] - General Surgery Professional Building [address] [place] [address], [address] [place] [address] - My Orders Last 24 Hours: My Active Orders 12/07/16 14:52 Peripheral IV Insertion Adult [OM.PC] Stat 12/07/16 14:54 HYDROmorphone [Dilaudid] 0.5 mg IVPUSH Q1H PRN Sodium Chloride 0.9% [Saline Flush] 10 ml FLUSH ASDIRECTED PRN Sodium Chloride 0.9% [Saline Flush] 2.5 ml FLUSH ASDIRECTED PRN 12/07/16 16:09 Chest 2V [CR] Stat - Assessment/Plan Last 24 Hours: My Active Orders 12/07/16 14:52 Peripheral IV Insertion Adult [OM.PC] Stat 12/07/16 14:54 HYDROmorphone [Dilaudid] 0.5 mg IVPUSH Q1H PRN Sodium Chloride 0.9% [Saline Flush] 10 ml FLUSH ASDIRECTED PRN Sodium Chloride 0.9% [Saline Flush] 2.5 ml FLUSH ASDIRECTED PRN 12/07/16 16:09 Chest 2V [CR] Stat
[2016-12-07] MEDS: HYDROmorphone 1 MG/ML Syringe IVPUSH PRN ×2 (15:05→15:38)
[2016-12-07 15:36] LABS: CHLORIDE,CL 109 mmol/L (98-110); SODIUM,NA 141 mmol/L (136-146)
[2016-12-07] MEDS ORDERED: Famotidine 20 MG/2 ML SDV IVPUSH ONE (16:57)
[2016-12-07 17:05] VITALS: BP 133/73
--- NOTE | 2016-12-09 15:03 | CR ---
EXAM DATE: 12/07/16 PATIENT'S AGE: 55 Patient: DEX COLLAZO Facility: [place], [place] Site . Site : 1960 Study: XRay Chest [id number]/13/2017 4:32:06 PM Ordering Physician: Arian Khan Final Report: Pain radiating to ribs technique two-view chest x-ray Findings : Low lung volumes. Normal cardiac mediastinal silhouette.No acute airspace or interstitial process. No effusion. No pneumothorax. Impression: 1. No acute pulmonary process. Dictated by Rosa Diaz MD @ Dec 07 2016 4:34PM (Electronic Signature) Report Signed by Proxy. TIESHA
== END 2016-12-07 17:14 | disposition home or self-care (01) ==
LOC: MW.ED 14:39
DX: R10.11 Right upper quadrant pain (principal); E78.00 Pure hypercholesterolemia, unspecified; J44.9 Chronic obstructive pulmonary disease, unspecified; Z79.899 Other long term (current) drug therapy; Z98.890 Other specified postprocedural states
CPT/HCPCS: 36415; 71020; 80053; 81001; 83690; 85025; 96361; 96374; 96375; 96376; 99284; J1170; J2405; J7040; 99285

== ENCOUNTER 2017-01-13 08:08 | Day surgery (SDC) | payer OTHER, BC ==
[~2017-01-13 08:08] MED LIST changes: -Albuterol 0.083% 2.5 MG/3 ML Neb Soln NEB ONE; -Albuterol 0.083% 2.5 MG/3 ML Neb Soln ONE; +Lactated Ringers 1,000 ML IV SCH; +Lidocaine 2% 5 ML SDV ONE; +Midazolam 1 MG/ML 2 ML SDV ONE; +Propofol 200 MG/20 ML SDV ONE; +fentaNYL 100 MCG/2 ML SDV ONE
--- NOTE | 2017-01-13 09:04 | PCM.PREANE ---
Preanesthetic Assessment - Anesthesia/Transfusion/Family Hx Anesthesia History: Prior Anesthesia Without Reaction Other Type of Anesthesia Reaction Comment: Denies any problems Family History of Anesthesia Reaction: No Transfusion History: No Prior Transfusion(s) Intubation History: Unknown - Review of Systems General: No Symptoms Pulmonary: No Symptoms Cardiovascular: No Symptoms Gastrointestinal: Abdominal pain Neurological: No Symptoms Other: Reports: None - Physical Assessment O2 Sat by Pulse Oximetry: 98 Respiratory Rate: 16 Vital Signs: Last Vital Signs Temp 36.2 C 01/13/17 08:22 Pulse 70 01/13/17 08:22 Resp 16 01/13/17 08:22 BP 138/78 01/13/17 08:22 Pulse Ox 98 01/13/17 08:22 Height: 1.83 m Weight: 124.738 kg ASA Class: 3 Mental Status: Alert & Oriented x3 Airway Class: Mallampati = 3 Dentition: Reports: Normal Dentition Thyro-Mental Finger Breadths: 3 Mouth Opening Finger Breadths: 2 ROM/Head Extension: Full Lungs: Clear to auscultation, Normal respiratory effort Cardiovascular: Regular Rate, Regular Rhythm - Allergies Allergies/Adverse Reactions: Allergies Allergy/AdvReac Type Severity Reaction Status Date / Time testosterone [From Androderm] Allergy Itching Verified 01/08/17 16:14 - Blood Blood Available: No - Anesthesia Plan Pre-Op Medication Ordered: None - Acknowledgements Anesthesia Type Planned: MAC Pt an Appropriate Candidate for the Planned Anesthesia: Yes Alternatives and Risks of Anesthesia Discussed w Pt/Guardian: Yes Pt/Guardian Understands and Agrees with Anesthesia Plan: Yes PreAnesthesia Questionnaire HEENT History: Other HEENT History: wears reading glasses, Cardiovascular History: Reports: High Cholesterol, Other (See Below) (coronary angiogram 7 years ago was ok) Respiratory History: Reports: COPD, Sleep Apnea Other Respiratory History: uses CPAP Gastrointestinal History: Reports: None Genitourinary History: Reports: None Musculoskeletal History: Reports: Back Pain, Chronic, Neck Pain, Chronic Neurological History: Reports: None Psychiatric History: Reports: None Endocrine/Metabolic History: Reports: Obesity/BMI 30+ Hematologic History: Reports: None Immunologic History: Reports: None Oncologic (Cancer) History: Reports: None Dermatologic History: Reports: None - Infectious Disease History Infectious Disease History: Reports: Chicken Pox, Measles, Mumps - Past Surgical History Head Surgeries/Procedures: Reports: None HEENT Surgical History: Reports: LASIK Other HEENT Surgeries/Procedures: removal of hemangioma from eye socket Cardiovascular Surgical History: Reports: Other (See Below) Other Cardiovascular Surgeries/Procedures: had angiogram, no stents Respiratory Surgical History: Reports: None GI Surgical History: Reports: Cholecystectomy (about 10 weeks ago), Colonoscopy (3 years agoi with polypectomy) Male Surgical History: Reports: None Endocrine Surgical History: Reports: None Neurological Surgical History: Reports: None Musculoskeletal Surgical History: Reports: Ganglion Cyst Other Musculoskeletal Surgeries/Procedures:: right hand Oncologic Surgical History: Reports: None Dermatological Surgical History: Reports: None - SUBSTANCE USE Smoking Status *Q: Former Smoker Tobacco Use Within Last Twelve Months: No Second Hand Smoke Exposure: No Days Per Week of Alcohol Use: 0 Number of Drinks Per Day: 1 Total Drinks Per Week: 0 Recreational Drug Use History: No - HOME MEDS Home Medications: Home Meds Cetirizine [ZyrTEC] 10 mg PO DAILY 11/07/16 [History] Mometasone/Formoterol [Dulera 200-5 MCG] 2 puff INH BID 11/07/16 [History] atorvaSTATin [Lipitor] 10 mg PO DAILY 11/07/16 [History] Acetaminophen/HYDROcodone [[place] 325-5 MG] 0.5 tab PO ASDIRECTED PRN 11/17/16 [ History] Albuterol [Ventolin HFA] 1 - 2 puff INH ASDIRECTED PRN 01/08/17 [History] Loratadine [Claritin] 10 mg PO ASDIRECTED PRN 01/08/17 [History] Metaxalone [Skelaxin] 800 mg PO TID PRN 01/08/17 [History] Tetrahydrz/Dext 70/Peg 400/Pvp [Eye Drops] 1 drop EYEBOTH BID 01/08/17 [History] Triamcinolone Acetonide [Triamcinolone Acetonide 0.1% Crm] 1 applic TOP ASDIRECTED PRN 01/08/17 [History] - CURRENT (IN HOUSE) MEDS Current Meds: Current Medications Lactated Ringer's (Ringers, Lactated) 1,000 mls @ 125 mls/hr IV ASDIRECTED FRACISCO Last Admin: 01/13/17 08:25 Dose: 125 mls/hr Discontinued Medications Fentanyl (Sublimaze) Confirm Administered Dose 100 mcg .ROUTE .STK-MED ONE Stop: 01/13/17 07:31 Lidocaine (Xylocaine-Mpf 2%) Confirm Administered Dose 5 ml .ROUTE .STK-MED ONE Stop: 01/13/17 07:30 Midazolam HCl (Versed 1 Mg/Ml) Confirm Administered Dose 2 mg .ROUTE .STK-MED ONE Stop: 01/13/17 07:31 Propofol (Diprivan 20 Ml) Confirm Administered Dose 400 mg .ROUTE .STK-MED ONE Stop: 01/13/17 07:31
[2017-01-13] MEDS ORDERED: Propofol 200 MG/20 ML SDV ONE ×2 (09:26→09:40)
--- NOTE | 2017-01-13 09:55 | PCM.OPNOTE ---
- General Post-Op/Procedure Note Date of Surgery/Procedure: 01/13/17 Operative Procedure(s): Esophagogastroduodenoscopy with biopsy. Colonoscopy with snare rectal polypectomy Pre Op Diagnosis: Right upper quadrant pain. Family history of duodenal carcinoma. Personal history of colon polyps. Post-Op Diagnosis: Moderate gastritis. Rectal polyp. Anesthesia Technique: MAC (ASA III) Primary Surgeon: Medhat Alvarez Condition: Good Free Text/Narrative:: Dictation [id number] [facility] [id number], [id number]
[2017-01-13] MEDS ORDERED: Lactated Ringers 1,000 ML IV SCH (10:00)
--- NOTE | 2017-01-13 10:08 | PCM.POSTAN ---
POST ANESTHESIA ASSESSMENT - MENTAL STATUS Mental Status: alert - RESPIRATORY Respiratory Status: respiratory rate WNL, airway patent, O2 saturation stable - CARDIOVASCULAR CV Status: pulse rate WNL, blood pressure stable - GASTROINTESTINAL GI Status: no symptoms - POST OP HYDRATION Hydration Status: adequate & stable - OBSERVATIONS Free Text/Narrative:: no anesthesia problems
[2017-01-13 10:28] VITALS: BP 130/59
--- NOTE | 2017-01-13 14:03 | OR ---
SURGEON: Medhat Alvarez M.D. DATE OF PROCEDURE: 01/13/2017 OPERATION PERFORMED: Colonoscopy with snare rectal polypectomy. ANESTHESIA: MAC. ASA CLASSIFICATION: III. PREOPERATIVE DIAGNOSIS: Personal history of colon polyps. POSTOPERATIVE DIAGNOSIS: Rectal polyp. DESCRIPTION OF PROCEDURE: With the patient having completed esophagogastroduodenoscopy, he was now positioned in the left lateral decubitus position. The colonoscope was inserted into the rectum and advanced with minimal difficulty to the cecum. Cecum was identified by internal landmarks and external pressure. The colonoscope was retroflexed in the cecum to visualize the ascending colon from below. The colonoscope was then straightened and slowly withdrawn. The cecum, ascending colon, hepatic flexure, transverse colon, splenic flexure, descending colon, and sigmoid colon showed no tumors, polyps, diverticula, angiodysplasia, or inflammatory changes. One moderate-sized polyp was encountered in the rectum. This had a very long stalk. This was removed with a snare electrocautery and recovered. The colonoscope was reinserted to visualize the polypectomy site which was dry. The colonoscope was then withdrawn to the distal rectum and retroflexed to visualize the anal orifice from above. No tumors, polyps, or acute hemorrhoidal changes were noted. The colonoscope was then straightened, the rectum aspirated, and the colonoscope removed. The patient tolerated the procedure well and was taken to recovery room in stable condition. BONNIE KIMBALL /[id number]
--- NOTE | 2017-01-13 14:03 | OR ---
SURGEON: Medhat Alvarez M.D. DATE OF PROCEDURE: 01/13/2017 OPERATION PERFORMED: Esophagogastroduodenoscopy with biopsy. ANESTHESIA: MAC. ASA CLASSIFICATION: III. PREOPERATIVE DIAGNOSES: Chronic right upper quadrant pain, family history of duodenal carcinoma status post cholecystectomy. POSTOPERATIVE DIAGNOSIS: Moderate gastritis. DESCRIPTION OF PROCEDURE: The patient was taken to the endoscopy room and positioned on the endoscopy table in the supine position. Time-out was called for appropriate identification of patient and procedure. Monitored anesthesia care was provided. The bite block was placed between the patient's teeth. The gastroscope was inserted into the mouth and advanced without difficulty through the esophagus and stomach into the duodenum, where examination was carried out in a retrograde fashion. The duodenum shows no mucosal abnormalities, ulcerations, or inflammatory changes. The stomach shows a moderate gastritis. Antral biopsies were obtained to look for the presence of Helicobacter pylori. The gastroscope was retroflexed to visualize the proximal stomach. No proximal lesions were identified. The gastroscope was then straightened and slowly withdrawn aspirating the stomach as the scope was removed. The GE junction was well defined and shows no acute inflammatory changes or ulcerations. The esophagus demonstrated good contractility. No mid or proximal lesions were identified. The vocal cords were visualized as the scope was withdrawn and noted to move symmetrically. The gastroscope was then removed with the patient having tolerated the procedure well. Following colonoscopy, he was taken to recovery room in stable condition. BONNIE KIMBALL /[id number]
== END 2017-01-13 10:37 | disposition home or self-care (01) ==
LOC: MW.SDS 08:08
PROVIDERS: ATTEND Surgery
PROC: 0DB68ZX Excision of Stomach, Via Natural or Artificial Opening Endoscopic, Diagnostic (ICD-10-PCS; principal; 2017-01-13)
PROC: 0DBP8ZZ Excision of Rectum, Via Natural or Artificial Opening Endoscopic (ICD-10-PCS; 2017-01-13)
DX: K29.50 Unspecified chronic gastritis without bleeding (principal); D12.8 Benign neoplasm of rectum; J44.9 Chronic obstructive pulmonary disease, unspecified; E78.00 Pure hypercholesterolemia, unspecified; J98.4 Other disorders of lung; E66.8 Other obesity; G47.30 Sleep apnea, unspecified; Z86.010 Personal history of colon polyps; Z80.0 Family history of malignant neoplasm of digestive organs; Z87.891 Personal history of nicotine dependence; Z88.8 Allergy status to other drugs, medicaments and biological substances; Z79.899 Other long term (current) drug therapy; Z90.49 Acquired absence of other specified parts of digestive tract; Z98.890 Other specified postprocedural states
CPT/HCPCS: 43239; 45385; J2250; J3010; J7120; 00740; 88305; 88312; J2704